=== PATIENT | male | born 1990 | race Caucasian/White ===

== ENCOUNTER → 2017-04-22 | Day surgery (SDC) | payer SELFPAY ==
[~2017-04-22] VITALS: Ht 177.8 cm; Wt 73.5 kg
[~2017-04-22] MED LIST: BUPIVACAINE/EPIN 0.25% 30 ML VIAL As Ordered ONE; DESFLURANE 240 ML INHALANT As Ordered ONE; GLYCOPYRROLATE INJ 0.2 MG/ML 2 ML VIAL As Ordered ONE; HYDROmorphone HCL 2 MG/ML 1ML VIAL (J1170) As Ordered ONE; KETOROLAC 60 MG/2 ML VIAL (J1885) As Ordered ONE; LIDOCAINE 1% MDV 20ML VIAL SQ ONE; LR 1,000 ML IV ONE; LR 1,000 ML IV SCH; METOCLOPRAMIDE INJ 10MG/2ML VIAL (J2765) As Ordered ONE; METOCLOPRAMIDE INJ 10MG/2ML VIAL (J2765) IV PRN; MIDAZOLAM INJ 2 MG/2 ML VIAL (J2250) As Ordered ONE; NEOSTIGMINE 1MG/ML 5 ML SYRINGE (J2710) As Ordered ONE; NORCO, ANEXSIA 5/325MG TABLET (HYDROcodone/ACETAMINOPHEN) PO PRN; ONDANSETRON 4MG/2ML VIAL (J2405) As Ordered ONE; ONDANSETRON 4MG/2ML VIAL (J2405) IV PRN; PERCOCET 5MG/325MG TAB PO PRN; PROPOFOL 500 MG/50 ML VIAL As Ordered ONE; ROCURONIUM BROMIDE 50 MG/5 ML VIAL As Ordered ONE; ceFAZolin 2 GM/D5W 50 ML IV BAG (J0690) As Ordered ONE; dexameTHASONE 4 MG/ML 1ML VIAL (J1100) As Ordered ONE; fentaNYL 100 MCG/2 ML INJECTION (J3010) IV PRN; fentaNYL 250 MCG/5 ML INJECTION (J3010) As Ordered ONE
[2017-04-22 14:20] VITALS: BP 120/77
--- NOTE | 2017-04-22 22:32 | RO ---
DATE OF PROCEDURE: 04/22/2017 PREOPERATIVE DIAGNOSIS: Right inguinal hernia. POSTOPERATIVE DIAGNOSIS: Bilateral inguinal hernia. OPERATIVE PROCEDURE: Robotic assisted Laparoscopic bilateral inguinal hernia repair with mesh SURGEON: Jose Simpson MD [employer] SUPERVISOR: Killian Martinez MD ANESTHESIA: General. ESTIMATED BLOOD LOSS: 10 mL. COMPLICATIONS: None. INDICATIONS FOR PROCEDURE: The patient was a 26-year-old male presents with large bulge in the right groin. Recommendation was to proceed with robotic-assisted right possible, bilateral inguinal hernia repairs. Risks and benefits procedure discussed in detail with the patient and informed consent was obtained and procedure was planned. DESCRIPTION OF PROCEDURE: The patient brought back to the operating room 7. After sufficient sedation, the abdomen was sterilely prepped and draped. A Partida catheter was placed. Next a time-out was done to confirm proper patient and proper procedure. Following that, an 8 mm supraumbilical incision made. Incision was carried down to level of fascia. Veress needle was then used to gain access to the abdomen. Once abdomen was entered, a 5 mm OptiVu port was used to gain access to the abdomen. Once the abdomen was entered, an 8 mm port was placed in the right midabdomen. Another 8 mm port in the left abdomen. A 5 mm port in the umbilicus was then replaced with an 8 mm camera port for the robot. Next, the robot was docked to the port sites. Next using cautery, the peritoneum over the right inguinal ligament was incised using a combination of blunt and sharp dissection, the preperitoneal space was dissected medially and laterally and posteriorly. Once the cord structures were encircled, the peritoneal hernia sac was carefully dissected free from the cord structures. Once this was completed, the left side was examined. There was another large hernia sac easily identified on that side as well. The same procedure was done to dissect that side. Next, starting with a left, a Bard 3-D Max large mesh was placed inside of the abdomen on the left side. Placed inside the preperitoneal space. It was tacked to the pubic symphysis using a #2-0 Vicryl suture. The mesh was laid out flat. The peritoneum was then closed with a running barbed suture encompassing the hernia sac within that suture line as well. Once that was completed, the same process was done on the right side with another large 3-D Max mesh. The same process for tacking the midline with a #2-0 Vicryl suture and closing the peritoneum over top of it. Once this was all completed, the abdomen was desufflated, ports were removed. Skin incisions were closed with #4-0 Vicryl subcuticular sutures. The abdomen was cleaned and dried. Steri-Strips, 4 x 4 and tape were applied thus ending procedure. ROSELIA
== END ==
LOC: M SDC 06:13
PROVIDERS: ATTEND Surgery
DX: K40.90 Unilateral inguinal hernia, without obstruction or gangrene, not specified as recurrent (principal); R06.83 Snoring
CPT/HCPCS: 49650; C1781; J0690; J1100; J1170; J1885; J2250; J2405; J2710; J2765; J3010